=== PATIENT | male | born 1995 | race Caucasian/White ===

== ENCOUNTER 2018-04-02 08:33 | Day surgery (SDC) | payer OTHER ==
[~2018-04-02 08:33] MED LIST: KEFZOL 1 GM ONE; Lactated Ringers 1,000 ML IV ONE; Sensorcaine 0.25% 10 ML ONE
[2018-04-02] MEDS ORDERED: SUBLIMAZE 250 MCG/5 ML IJ ONE (08:34)
[2018-04-02] MEDS ORDERED: Zofran 4 MG/2 ML VIAL IV ONE (08:34)
[2018-04-02] MEDS ORDERED: Quelicin Fliptop 200 MG/10 ML IJ ONE (08:34)
[2018-04-02] MEDS ORDERED: TORAdol 30 mg Injection IJ ONE (08:34)
[2018-04-02] MEDS ORDERED: Zemuron 100 MG/10 ML IJ ONE (08:34)
[2018-04-02] MEDS ORDERED: DIPRIVAN 200 MG/20 ML IV ONE (08:34)
[2018-04-02] MEDS ORDERED: Versed 2 MG/2 ML Injection IV ONE (08:34)
[2018-04-02] MEDS ORDERED: CEFAZOLIN 2 GM-D5W BAG** 50 ML IV ONE (09:14)
[2018-04-02] MEDS ORDERED: Lactated Ringers 1,000 ML IV SCH (09:30)
[2018-04-02] MEDS ORDERED: Versed 2 MG/2 ML Injection IV PRN (09:49)
[2018-04-02] MEDS ORDERED: Versed 2 MG/2 ML Injection ONE (09:51)
[2018-04-02] MEDS ORDERED: CEFAZOLIN 2 GM-D5W BAG** 2 GM/50 ML ML IV SCH (10:00)
[2018-04-02] MEDS ORDERED: Pre-Attached Lta Kit TP ONE (10:40)
[2018-04-02] MEDS ORDERED: MORPHINE SULFATE 2 MG INJ IV ONE (13:55)
[2018-04-02] MEDS ORDERED: MORPHINE SULFATE 2 MG INJ ONE (13:59)
--- NOTE | 2018-04-02 15:53 | OP ---
SURGERY DATE/TIME: 04/02/2018 1039 PREOPERATIVE DIAGNOSIS: Umbilical hernia. POSTOPERATIVE DIAGNOSES: Umbilical hernia. PROCEDURES: Umbilical hernia repair. SURGEON: Constantino Oconnor M.D. ANESTHESIA: General. SPECIMEN: None. ESTIMATED BLOOD LOSS: Minimal. COMPLICATIONS: None. FINDINGS: A 1 cm umbilical hernia defect. PATIENT PRESENTATION: This patient presents with symptomatic small umbilical hernia. After discussing risks, benefits of umbilical hernia repair with discussion if the hernia defect is small we will plan for primary suture repair and if it is bigger than expected we may use mesh to repair. After discussing risks and benefits of surgery the patient wished to proceed. DESCRIPTION OF PROCEDURE: The patient was brought to the OR and placed in supine on OR table. He was placed under general anesthesia. The abdomen was prepped and draped in sterile fashion. A curvilinear incision was made at the superior aspect of the umbilicus. The scalpel was taken down to fascia with electrocautery. The umbilical stalk was circumferentially dissected with blunt dissection. The umbilical stalk was transected with electrocautery. The hernia sac was excised and discarded. The fascia was cleaned up around the edges. There was a 1 cm umbilical defect. There was no incarceration of any contents of hernia sac. The hernia defect was closed with 0 PDS suture with two figure-of-8 sutures. The umbilical stalk was reattached to the fascia with two - 3-0 Vicryl sutures. The wound was irrigated and suctioned dry. The wound was completely hemostatic. 0.25% Marcaine was infiltrated into the wound. The skin was closed with a 3-0 interrupted deep dermal suture and a 4-0 running Vicryl subcuticular suture. Steri-Strips were applied and dressing over top of the Steri-Strips. The patient was recovered and taken to PACU in stable condition.
[2018-04-02 18:25] VITALS: O2SAT 97
[2018-04-02 18:29] VITALS: PULSE 52
[2018-04-02 18:30] VITALS: BP 149/79
== END 2018-04-02 14:30 | disposition home or self-care (01) ==
LOC: SDC 08:33
PROVIDERS: ATTEND Surgery
DX: K42.9 Umbilical hernia without obstruction or gangrene (principal); K21.9 Gastro-esophageal reflux disease without esophagitis; Z87.442 Personal history of urinary calculi
CPT/HCPCS: 94250; J0330; J0690; J1885; J2250; J2270; J2405; J2704; J3010